=== PATIENT | male | born 1950 | race Caucasian/White ===

== ENCOUNTER 2016-10-18 12:10 | Emergency (ER) | payer MEDICARE, OTHER ==
[~2016-10-18] VITALS: Ht 165.1 cm; Wt 68.6 kg
[~2016-10-18 12:10] MED LIST: ASPI81TA3 PO; CLOP75TA3 PO; DXM4T PO; LIP40 PO; MS15TCR PO; MULT-1018 PO; NINT150C PO; OXYC5CAP4 PO; POLY17PO6 PO; PSYL798P2 PO; VIAG25T PO
[2016-10-18 12:25] VITALS: BP 121/64; PULSE 60; RESP 19; O2SAT 95
[2016-10-18 12:43] LABS: BASOPHILS % (AUTO) 0 % (0-3); EOSINOPHILS % (AUTO) 0 % (0-5); Mean Corpuscular Hemoglobin 31.1 pg (27.0-35.0); Mean Corpuscular Volume 93.6 fL (81-100); NEUTROPHILS % (AUTO) 92.8 % (40-74); Platelet Count 238 bil/L (150-400)
[2016-10-18] MEDS ORDERED: ATOR20TA PO (12:48)
[2016-10-18] MEDS ORDERED: BACL10TA PO (12:49)
--- NOTE | 2016-10-18 12:59 | DRSVH ---
PROCEDURE: X-RAY CHEST ONE VIEW, PORTABLE ([id number]) INDICATIONS: 66 year-old male with chest pain. TECHNIQUE: One view of the chest was acquired. COMPARISON: Outside Film, CR, XR CHEST 1VW (PORTABLE), 06/03/2016, 16:21. Outside Film, CR, XR CHEST 2VW, 02/22/2016, 9:46. FINDINGS: Surgical changes and devices: None. Lungs and pleura: No pleural effusions or pneumothorax. No acute airspace opacities. Lung volumes ar e decreased, with peripheral interstitial opacities again noted. Mediastinum: Mediastinal contours appear normal. Heart size is normal. Bones and chest wall: No suspicious bony lesions. Overlying soft tissues appear unremarkable. IMPRESSION: Findings consistent with background chronic interstitial lung disease, without superimpos ed acute pulmonary disease. Dictated by: Christoph Raza M.D. on 10/18/2016 at 11:56 Approved by: Christoph Raza M.D. on 10/18/2016 at 11:57
[2016-10-18 13:05] LABS: TROPONIN T < 0.010 ug/L (0.0-0.011)
[2016-10-18 13:12] LABS: Magnesium 2.5 mg/dL (1.6-2.6)
--- NOTE | 2016-10-18 13:30 | ED.REPORT ---
HPI-Chest Pain 40 and Over Date of Service Oct 18, 2016 ED Provider: Kalyn Valiente MD The patient is a 66 yo male with history significant for CAD s/p stents x4, idiopathic pulmonary fibrosis, and newly diagnosed lung cancer with mets to liver and bones. He presents to the ER for chest pain onset after the chemo session this morning. Patient reports chest pain across the anterior chest that does not feel like pressure, but radiates to his left neck and left arm. Per the patient, the pain felt different than the chest pain he had when he had the [place]. He reports similar symptoms after the chemo session yesterday as well, but it resolved with rest. This morning, he felt 7/10 chest pain after the chemo again, but by the time he arrived to the ED, his CP gradually improves and he is now pain free. He reports chronic SOB at rest. He denies any other associated symptoms, including diaphoresis, nausea, vomiting, headache, or palpitations. Patient has not used Nitro for the last 2 years. He is on Plavix and ASA 81mg at home. Of note, the patient was on the lung transplant list for many years until he was recently diagnosed with lung cancer 6 weeks ago. The patient just had 3 days of chemo so far. His oncologist is Dr. Siu. Nursing Notes Stated Complaint: CHEST PAIN Chief Complaint: Chest Pain Nursing Notes Reviewed: Yes Allergies: Coded Allergies: No Known Allergies (Verified , 10/10/16) Scheduled Aspirin Chew (Aspirin Chew) 81 Mg Tab.chew 81 MG PO DAILY Atorvastatin (Lipitor) 20 Mg Tablet 20 MG PO DAILY Baclofen (Baclofen) 10 Mg Tablet 5 MG PO TID Baclofen (Baclofen) 10 Mg Tablet 10 MG PO TID Clopidogrel Bisulfate (Plavix) 75 Mg Tablet 75 MG PO DAILY Dexamethasone (Dexamethasone) 4 Mg Tablet 4 MG PO BID Morphine Sulfate ER (MS Contin) 15 Mg Tablet.er 30 MG PO BID Multivitamin (Multi Vitamin Daily) 1 Each Tablet 1 EACH PO DAILY Nintedanib Esylate (Ofev) 150 Mg Capsule 150 MG PO Q12H WITH FOOD Polyethylene Glycol 3350 (Miralax) 17 Gm Powd.pack 17 GM PO DAILY Psyllium Husk (with Sugar) (Metamucil Powder) 538 Gm Powder 1 TBS PO DAILY Scheduled PRN oxyCODONE (oxyCODONE) 5 Mg Capsule 10 MG PO Q4H PRN PRN For Pain General Time Seen by MD: 12:20 Transferred From: Private physician office Chief Complaint Chest pain Hx Obtained From: Patient, Spouse Arrived By: Walk-in Sudden in Onset?: Yes Onset Occurred: Just prior to arrival Symptom Duration: 1 - 4 hours Location: : Chest left: Chest right Quality: Same as prior, Painful Radiation: : Neck: Shoulder left Severity: Current: No pain currently Severity: Maximum: Pain level 7 out of 10 Associated with: Reports: Shortness of Breath, Denies: Dizziness, Lightheaded, Nausea, Numbness/Tingling, Palpitations, Weakness, Wheezing Pertinent Negative: Exacerbated by nothing, Relieved by nothing Context Related History: Reports: Acute coronary syndrome, GERD, Myocardial infarction Recent Healthcare: Recent doctor visit Similar Sx Previous: Yes Risk Factors )( CAD Risk Stratification Hyperlipidemia Known CAD Risk factors reviewed )( PE Risk Stratification Malignancy Risk factors reviewed Past Medical History Past Medical History History of [place] Glaucoma Reports: Coronary artery disease, GERD Past Surgical History tash fundoplication Cardiac stents placement in 2003 and 2016 Smoking History Former Smoker (quit in 1985) Social History Alcohol Use: Denies alcohol use Drug Use: Denies drug use Other Social History: Good social support, Ambulatory Status Independent Review of Systems Complete sys rev & neg: except as marked. Physical Exam Initial Vital Signs Vital Signs (First) Date Time Temp Pulse Resp B/P Pulse Ox O2 Delivery O2 Flow Rate FiO2 10/18/16 12:25 36.6 60 19 121/64 95 Room Air Interpretation & Diagnostics Lab Results Interpretation Result Diagram: 10/18/16 1225 10/18/16 1225 Test 10/18/16 12:25 10/18/16 14:20 White Blood Count 13.7th/mm3 (3.8-10.1) Red Blood Count 4.69mil/mm3 (4.40-5.80) Hemoglobin 14.6g/dL (13.8-17.2) Hematocrit 43.9% (41.0-50.0) Mean Corpuscular Volume 93.6fL (81-100) Mean Corpuscular Hemoglobin 31.1pg (27.0-35.0) Mean Corpuscular Hemoglobin Concent 33.3% (32.0-37.0) Red Cell Distribution Width 13.6% (12.3-15.4) Platelet Count 238bil/L (150-400) Neutrophils (%) (Auto) 92.8% (40-74) Lymphocytes (%) (Auto) 4.0% (14-46) Monocytes (%) (Auto) 3.0% (4-12) Eosinophils (%) (Auto) 0% (0-5) Basophils (%) (Auto) 0% (0-3) D-Dimer 1.87mg/L FEU (<0.50) Sodium Level 140mEq/L (134-144) Potassium Level 5.1mEq/L (3.5-5.2) Chloride Level 102mEq/L (97-108) Carbon Dioxide Level 28mmol/L (18-29) Blood Urea Nitrogen 14mg/dL (8-27) Creatinine 0.60mg/dL (0.76-1.27) Estimat Glomerular Filtration Rate 142mL/min (>59) Glucose Level 145mg/dL (60-99) Calcium Level 9.3mg/dL (8.5-10.1) Magnesium Level 2.5mg/dL (1.6-2.6) Total Bilirubin 1.0mg/dL (0.0-1.2) Aspartate Amino Transf (AST/SGOT) 101U/L (0-50) Alanine Aminotransferase (ALT/SGPT) 168U/L (0-44) Alkaline Phosphatase 199U/L (25-160) Total Protein 6.2g/dL (6.4-8.4) Albumin 3.8g/dL (3.4-5.0) Hold Rayo Top Tube Received (Received) Troponin T < 0.010ug/L (0.0-0.011) Lab values outside NL range: no clinical significance. Lab Results Interpretation: Troponin negative x 2 Elevated WBC, but trends down compared to the last WBC D-dimer is elevated. ECG Interpretation ECG Interpretation: No changes compared to previous EKG. Interpreted by: ED physician Normal ECG Interpretation: Normal rate (60), No acute ischemic changes X-Ray Chest Interpretation Chest Xray Interpretation: IMPRESSION: Findings consistent with background chronic interstitial lung disease, without superimposed acute pulmonary disease. Dictated by: Christoph Raza M.D. on 10/18/2016 at 11:56 Approved by: Christoph Raza M.D. on 10/18/2016 at 11:57 View: Portable Interpretation / Wet Read by: Interpret - Radiologist Reviewed Previous Films: No change Re-Eval/Medical Decision Med Decision/Clinical Course 66 yo male with history significant for CAD s/p stents x4, idiopathic pulmonary fibrosis, and newly diagnosed lung cancer with mets to liver and bones presents to the ER for chest pain onset after the chemo session this morning. The chest pain is across his anterior chest with radiation to the left neck and shoulder. However, patient states that it feels different than the [place] chest pain he had. However, by the time he arrived to the ER, his chest pain has resolved. Patient had similar symptoms after chemo yesterday as well. In light of his significant CAD and recently diagnosed lung cancer, I was concerned of ACS and/or pulmonary embolism. I did not realize that the patient already had a CT chest/abd/pelvis done yesterday 10/17, which did not show any evidence of PE. Therefore, although his D-dimer is elevated, there is no other indication to repeat the CT chest. Patient also denies any worsening SOB or calf tenderness. His cardiac workups are negative as below. Labs: Troponin negative x 2 Elevated WBC, but trends down compared to the last WBC D-dimer is elevated. CXR: Findings consistent with background chronic interstitial lung disease, without superimposed acute pulmonary disease. EKG: no acute changes. Rate of 60. Given all these findings, it is likely that his chest pain is due to side effects of the chemotherapy, interstitial lung disease, cancer pain, or anxiety. Patient admits that he has been under stress given the new diagnosed cancer and the fact that he has been on the lung transplant list for many years. All the labs and imaging report were discussed with the patient and his . All questions were answered and patient was discharged in stable condition. Source of Hx: Old records, Family Time of Eval: 13:20 Patient Status: Condition resolved Re-Evaluation/Progress Note: Patient denies any chest pain. Labs and CXR results discussed. Trop negative x 1. Although his D-dimer is slightly elevated, the patient just had a CT chest yesterday. He will follow up with his PCP and oncologist next week. Time of Eval: 15:10 Patient Status: Condition resolved Re-Evaluation/Progress Note: CT chest that was done on 10/17 discussed with the patient. I encouraged the patient to talk to oncology about the details of the CT, but he does not need to repeat it today in spite of the elevated D-dimer. Patient verbalized understanding. Second Trop negative. Patient agreed with discharge plan. Counseled Regarding: Diagnosis, Lab results, Need for follow-up, When/why to return to ED Discharge & Departure Shift Change Sign-Out Response to Therapy: Improved Primary Impression: Non-cardiac chest pain Disposition: Home Discharge Condition All VS Reviewed: Yes Condition: Stable Patient Instructions: Chest Pain (ED) Additional Instructions: In light of your past medical history, your symptoms were concerning for a heart attack. However, both the EKG and the labs are negative for any acute changes. It is likely that the chest pain you had was due to either the chemotherapy or your current lung disease. Please discuss about these symptoms with Dr. Siu. We were also concerned of possible blood clot in your lung, but you just had a chest CT done yesterday 10/17, which showed increasing size of the lung masses without any new findings. Therefore, we did not pursue additional imaging today. However, if you develop worsening chest pain, shortness of breath, headache, dizziness, nausea, or vomiting, please return to the ER. Take your medications as directed and follow up with your primary care doctor in a few weeks. Referrals: Fabian Solis MD (PCP) CARDIOLOGY,ROSALIE SÁNCHEZ (Family) Attending Statement Patient seen and examined. 66-year-old gentleman with metastatic lung cancer is been experiencing chest pain at the end of his chemotherapy. Moderate pain yesterday. Pain-free by the time he arrived in the emergency department today. Labs are similar to prior. Initial troponin and repeat at 2 hours is also unremarkable. Suspect noncardiac etiology for his chest pain likely related to his chemotherapy copies to: Fabian Solis MD; Venkatesh Garzon MD, Ngochanh H DO Oct 18, 2016 13:30 Kalyn Valiente MD Oct 18, 2016 15:12
[2016-10-18 15:29] VITALS: BP 137/70; PULSE 54; RESP 14; O2SAT 93
[2016-10-23] MEDS ORDERED: ASPI-973 PO (15:53)
[2016-10-28] MEDS ORDERED: ATOR40TA69 PO (10:58)
[2016-10-28] MEDS ORDERED: PROC10TA PO (10:58)
[2016-10-28] MEDS ORDERED: DEX1 PO (10:58)
[2016-10-28] MEDS ORDERED: [UNRECOGNIZED DRUG - OTHER] PO (10:58)
[2016-10-28] MEDS ORDERED: RELIEF PO (10:58)
[2016-11-01] MEDS ORDERED: THC PO (14:48)
[2016-11-01] MEDS ORDERED: CBD PO (14:48)
== END 2016-10-18 15:23 | disposition home or self-care (01) ==
LOC: SED 12:10
DX: R07.89 Other chest pain (principal); R06.02 Shortness of breath; I25.10 Atherosclerotic heart disease of native coronary artery without angina pectoris; I25.2 Old myocardial infarction; K21.9 Gastro-esophageal reflux disease without esophagitis; H40.9 Unspecified glaucoma; C78.7 Secondary malignant neoplasm of liver and intrahepatic bile duct; C79.51 Secondary malignant neoplasm of bone; C34.90 Malignant neoplasm of unspecified part of unspecified bronchus or lung; Z95.5 Presence of coronary angioplasty implant and graft; Z79.82 Long term (current) use of aspirin; Z87.891 Personal history of nicotine dependence

== ENCOUNTER 2016-10-24 13:06 | Day surgery (SDC) | payer MEDICARE, OTHER ==
[~2016-10-24] VITALS: Ht 165.1 cm; Wt 65.4 kg
[~2016-10-24 13:06] MED LIST changes: +ASPI-973 PO; -ASPI81TA3 PO; +ATOR20TA PO; +BACL10TA PO; -CLOP75TA3 PO; +CeFAZolin 2 Gm/50 mL D5W IV Premix IV ONE; +Dexamethasone 4 mg/mL Inj IVPUSH PRN; +EPHEDrine Sulfate 50 mg/mL Inj IVPUSH PRN; +HYDROmorphone 1 mg/mL Inj IVPUSH PRN; -LIP40 PO; +Labetalol 5 mg/mL 4 mL Inj IV PRN; +Lactated Ringer's 1,000 ML IV SCH; +Lactated Ringer's 500 ML IV PRN; +MetoCLOpramide 5 mg/mL 2 mL Inj IVPUSH PRN; -NINT150C PO; +Ondansetron 2 mg/mL 2 mL Inj IVPUSH PRN; +Phenylephrine 10,000 mCg/mL Inj IVPUSH PRN; -VIAG25T PO; +fentaNYL-PF 50 mCg/mL 2 mL Inj IVPUSH PRN; +hydrALAZINE 20 mg/mL Inj IVPUSH PRN
[2016-10-24] MEDS ORDERED: Propofol 10 mg/mL 20 mL Inj ONE (13:07)
[2016-10-24] MEDS ORDERED: Ketamine 10 mg/mL 20 mL Inj ONE (13:07)
[2016-10-24] MEDS ORDERED: CeFAZolin 2 Gm/50 mL D5W Duplex Bag IV ONE (13:14)
[2016-10-24] MEDS ORDERED: Lactated Ringer's 1,000 ML IV ONE (13:24)
[2016-10-24 13:26] VITALS: BP 150/78; PULSE 60; RESP 16; O2SAT 96
--- NOTE | 2016-10-24 14:13 | PCM.HPANE ---
Patient Data Date of Service: Oct 24, 2016 Surgeon Admitting Provider: Attending Provider:Pop Martinez MD Primary Care Physician:Fabian Solis MD Other Provider:Jose M Magdaleno Anesthesia Reason for Visit Lung Cancer Ht/WT & BMI Height (Feet): 5 Height (Inches): 5.00 Weight (Kilograms): 65.4 Body Mass Index 24.00 Allergies Coded Allergies: No Known Allergies (Verified , 10/10/16) Past Anesthesia History Anesthesia History: Denies:: Abnormal Airway, Anesthesia Reactions, Difficult Intubation, Fam Anesthesia Reaction, Fam Malignant Hypertherm, Malignant Hyperthermia Diabetes History Hx Diabetes?: No MRSA MRSA: No Medications Blood Thinner: Aspirin, Plavix Reported Medications Aspirin 81 Mg Wfrmlx74 Mg PO DAILY Ref 0 10/23/16 Baclofen 10 Mg Coyggf63 Mg PO TID Ref 0 10/18/16 Baclofen 10 Mg Tablet5 Mg PO TID Ref 0 10/18/16 Atorvastatin (Lipitor)20 Mg Mkasjb51 Mg PO DAILY Ref 0 10/18/16 Psyllium Husk (with Sugar) (Metamucil Powder)538 Gm Powder1 Tbs PO DAILY 10/16/16 Polyethylene Glycol 3350 (Miralax)17 Gm Powd.pack17 Gm PO DAILY 10/16/16 Multivitamin (Multi Vitamin Daily)1 Each Tablet1 Each PO DAILY Ref 0 10/16/16 Dexamethasone 4 Mg Tablet4 Mg PO BID Ref 0 10/16/16 oxyCODONE 5 Mg Ewvdmsp39 Mg PO Q4H PRN For Pain Ref 0 10/16/16 Morphine Sulfate ER (MS Contin)15 Mg Tablet.er30 Mg PO BID Ref 0 10/16/16 Discontinued Reported Medications Clopidogrel Bisulfate (Plavix)75 Mg Wwbiwu44 Mg PO DAILY 30 Days Ref 0 12/21/14 Nintedanib Esylate (Ofev)150 Mg Iardnvy666 Mg PO Q12H WITH FOOD 12/21/14 Aspirin Chew 81 Mg Tab.chew81 Mg PO DAILY #1 BOTTLE Ref 0 10/05/13 Sildenafil Citrate (Viagra)25 Mg Enupgy38 Mg PO UD PRN ED Ref 0 10/10/16 Atorvastatin (Lipitor)40 Mg Hryodm27 Mg PO DAILY Ref 0 12/21/14 History History of ENT Problems?: No HEENT History: Denies:: Abnormal Airway Cataracts Difficult Intubation Dysphagia Hearing Problem Sinus Problem Denture Type: None Teeth Condition: Within Normal Limits Hx of Heart Problems?: Yes Cardiovascular History: Positive for:: Cardiac Surgery (S/P HEART CATHS X2 W/ STENTING (11/2003, 12/2014)) Chest Pain (UNSTABLE ANGINA) Hypertension Irregular Heartbeat Denies:: AICD Atrial Fibrillation Congestive Heart Failure Edema Heart Murmur (ECHO 03/2005 EF 60-70% MILD PULM. HTN) Pacemaker Thrombophlebitis Valvular Heart Disease Other Cardiac History: Bare metal stents in june. Cleared by cardiology. No recent chest pain. Long discussion about dualantiplatelet therapy. Stopped Plavix 7 days ago, took ASA this am. Hx of Respiratory Problem?: Yes Respiratory History: Positive for:: COPD (06/2011-PFT'S/PULM. CONSULT IDIOPATHIC PULM. FIBROSIS/RESTRICTIVE DIS.) Cough Dyspnea ([place]) Oxygen Administration (@ NIGHT W/ CPAP & W/ ANY ACTIVITY) Use of C-PAP Machine (NILAM+ W/ CPAP) Denies:: Asthma Chest Surgery (S/P LUNG BX LUNG CA/IV ACCESS=CURRENT PROBLEM) Emphysema Hemoptysis Pneumonia Tuberculosis Hx Neurologic Problems?: Yes Neurological History: Denies:: Alzheimer's Disease CVA Dementia Dizziness Headaches (REMOTE HX ) Parkinson's Disease Seizures Hx of GI Problems?: Yes Hx of Problems?: No Male Hx: Denies:: Prostate Problems Scrotal Mass Testicular Surgery Skin History: Denies:: History Skin Disorders? Pressure Ulcers Hx Musculoskeletal Problems?: Yes Musculoskeletal History: Positive for:: Musculoskeletal Trauma (S/P LT ELBOW PINNING) Denies:: Back Injury Joint Replacement Hx of Psycho/Social Problems?: No Psycho Social History: Denies:: Anxiety Hx Depression Hx Surgeries?: Yes (HEART CATHS/STENTING X2,ASHLEY FUNDOPLICATION,LT ELBOW PINNING,LIVER BX,MONICA) Hx Any Other Health Problems?: Yes Other History: Positive for:: Cancer (LUNG) Hospitalization Denies:: Endocrine Disease Thyroid Disease History Blood Transfusions: Denies:: Blood Transfuse Reaction Blood Transfusions Hx Diabetes: No Hx Alcohol Use: YesHx Substance Use: No Smoking Status: Former Smoker Have You Smoked inLast 12 mo: No Stop/Bang S-Snoring: Do You Snore Loudly: No T-Tired: feel tired, fatigued: No O-Obsered: Observed not breath: No P-Blood Pressure: treated: Yes B- Body Mass Index > 35 kg/m2: No A- Age over 50: Yes N- Neck Large Circumference: No G- Gender Male: Yes NILAM Risk Assessment: Low Risk, <3 Yes Risk Assessment Category Category 1A: Patient has history of documented sleep apnea, and HAS NOT received any narcotic, sedative or anesthesia administration during this stay. Category 1B: Patient has history of documented sleep apnea, and HAS received any narcotic , sedative or anesthesia administration during this stay Category 2: Patient has SUSPECTED Obstructive Sleep Apnea, and HAS received any narcotic , sedative or anesthesia administration during this stay. Category 3: Patient has SUSPECTED Obstructive Sleep Apnea and HAS NOT received narcotic, sedative or anesthesia administration during this stay. Category 4: Outpatient in Procedural Areas with known sleep apnea or who screen positive for High Risk via the STOP/BANG questionnaire. Exam Exam Vital Signs Vital Signs Date Time Temp Pulse Resp B/P Pulse Ox O2 Delivery O2 Flow Rate FiO2 10/24/16 13:26 36.0 60 16 150/78 96 Room Air General Appearance: Alert, Oriented X3, Cooperative, No Acute Distress HEENT/AIRWAY: MP 2 Lungs: Clear to Auscultation, Normal Air Movement Heart: Exam Unremarkable, Regular Rate/Rhythm, No Murmurs/Rubs/Gallops Meds/Labs/Diagnostics Admission Meds Current Medications Lactated Ringer's (Lr) 1,000 ml @ ud STK-MED ONCE IV Last administered on 10/24t 13:24; Start 10/24/16 at 13:24; Stop 10/24/16 at 13:25; Status DC Plan Impression Patient chart reviewed, patient interviewed and anesthestic plan with risks, benefits, and alternatives discussed, and informed consent obtained. NPO per Anesth. Guidelines: Yes ASA Physical Status: ASA3 Severe Disease Anesthetic Plan: MAC Bene/Risks/Altern/Consents: Yes HP Complete Prior to Induction: Yes Miguel Roland MD Oct 24, 2016 14:13
[2016-10-24] MEDS ORDERED: Bupivacaine-MPF 0.5% W/EPI 30 mL Inj INFILTRATE ONE (14:26)
[2016-10-24] MEDS ORDERED: HepLOK Flush 100 unit/mL 5 mL Inj IVFLUSH ONE (14:27)
[2016-10-24 15:01] VITALS: BP 108/64; PULSE 52; RESP 15; O2SAT 96
--- NOTE | 2016-10-24 15:18 | PCM.ANEP1 ---
Post Anesthesia PACU Phase 1 Assessment Vital Signs Vital Signs Date Time Temp Pulse Resp B/P Pulse Ox O2 Delivery O2 Flow Rate FiO2 10/24/16 15:01 36.6 52 15 108/64 96 Simple Mask 7 10/24/16 13:26 36.0 60 16 150/78 96 Room Air Anesthetic Administered: MAC Level of Alertness: Sleepy, easy to arouse Pain: No Nausea or Vomiting: No CV Function & Hydration Stable: Yes Airway Device: Oxygen Delivery: Room Air Lungs: Clear to Auscultation, Normal Air Movement PACU Phase 2 Assessment Complications: No Follow up Care: N/A Patient Instructions Provided: N/A Miguel Roland MD Oct 24, 2016 15:18
--- NOTE | 2016-10-24 15:27 | OP ---
[address] [address] OPERATIVE REPORT PATIENT: NORMAN HANSEN : 1950 MR#: [id number] ADMIT: 10/24/2016 JOB ID: [id number] DATE OF SURGERY: 10/24/2016 ANESTHESIA: MAC with local. PREOPERATIVE DIAGNOSIS(ES): Lung cancer. POSTOPERATIVE DIAGNOSIS(ES): Lung cancer. OPERATIVE PROCEDURE: Insertion of left subclavian vein Port-A-Cath using fluoroscopy with interpretation for guidance. SURGEON: Dr. Pop Martinez. ASSISTANTS: Alan Toth PA-C COMPLICATIONS: None. ESTIMATED BLOOD LOSS: Less than 5 mL. CONDITION: Satisfactory. SPECIMEN: None. FINDINGS: Port was placed without complications to the left subclavian vein. INDICATIONS/SIGNIFICANT HISTORY: The patient is a 66-year-old man with metastatic lung cancer scheduled to begin chemotherapy in the near future. OPERATIVE TECHNIQUE: The patient was taken to the operating room and placed in supine position. Light sedation was administered and perioperative antibiotics were given. The chest and neck were prepped and draped in a standard surgical fashion and a procedural pause performed. Initially I had a little difficulty accessing the left subclavian vein given that the patient's somewhat emaciated state. Eventually, this was accessed and the physician assistant media buyer confirmed with fluoroscopy which demonstrated the wire going through the right atrium down into the inferior vena cava. Local anesthetic was injected and a subcutaneous pocket was created in the left anterior chest. The port was secured in place using three 2-0 Prolene sutures. The catheter was tunneled up to the wire exit point and then inserted into the vein under fluoroscopic visualization. Final position was confirmed with fluoroscopy. The port aspirated and flushed nicely. This was locked with heparin. The skin was closed using 3-0 Vicryl deep dermal followed by a running 4-0 Monocryl. Dermabond was applied. The entire procedure was well tolerated without complication.
--- NOTE | 2016-10-24 15:31 | DRSVH ---
PROCEDURE: X-RAY CHEST ONE VIEW, PORTABLE ([id number]) INDICATIONS: POST OP PORT PLACEMENT TECHNIQUE: One view of the chest was acquired. COMPARISON: Outside Film, CR, XR CHEST 2VW, 02/22/2016, 9:46. Outside Film, CR, XR CHEST 1VW (FREDDIE BLE), 06/03/2016, 16:21. [facility], CT, CT CHEST ABD PELVIS W CON, 10/17/2016, 13:16. [facility], CR, XR CHEST 1VW (PORTABLE), 10/18/2016, 12:24. FINDINGS: Surgical changes and devices: Left chest wall Port-A-Cath has been placed with tip projecting to the distal SVC. Lungs and pleura: No pleural effusions or pneumothorax. Chronic interstitial prominence stable keila red to prior examinations. Mediastinum: Mediastinal contours appear normal. Heart size is normal. Bones and chest wall: No suspicious bony lesions. Overlying soft tissues appear unremarkable. IMPRESSION: No acute cardiopulmonary disease process. Status post placement of left sided Port-A-Cat h. Dictated by: Letty Huddleston MD, PhD on 10/24/2016 at 15:28 Approved by: Letty Huddleston MD, PhD on 10/24/2016 at 15:29
[2016-10-24 15:50] VITALS: BP 110/62; PULSE 60; RESP 16; O2SAT 97
[2016-10-28] MEDS ORDERED: ATOR40TA69 PO (10:58)
[2016-10-28] MEDS ORDERED: RELIEF PO (10:58)
[2016-10-28] MEDS ORDERED: DEX1 PO (10:58)
[2016-10-28] MEDS ORDERED: [UNRECOGNIZED DRUG - OTHER] PO (10:58)
[2016-10-28] MEDS ORDERED: PROC10TA PO (10:58)
== END 2016-10-24 23:59 | disposition home or self-care (01) ==
LOC: SAS 13:06
PROVIDERS: ATTEND General Practice
DX: C34.90 Malignant neoplasm of unspecified part of unspecified bronchus or lung (principal); I25.10 Atherosclerotic heart disease of native coronary artery without angina pectoris; I45.10 Unspecified right bundle-branch block; E78.5 Hyperlipidemia, unspecified; K21.9 Gastro-esophageal reflux disease without esophagitis; J84.112 Idiopathic pulmonary fibrosis; I25.2 Old myocardial infarction; Z95.5 Presence of coronary angioplasty implant and graft; Z79.82 Long term (current) use of aspirin; Z79.02 Long term (current) use of antithrombotics/antiplatelets; Z87.891 Personal history of nicotine dependence; G47.33 Obstructive sleep apnea (adult) (pediatric)
CPT/HCPCS: 36561; 71010; 77001; C1788; C1894; J0690; J1642; J7120

== ENCOUNTER 2016-11-30 16:15 | Emergency (ER) | payer MEDICARE, OTHER ==
[~2016-11-30] VITALS: Ht 165.1 cm; Wt 63.6 kg
[~2016-11-30 16:15] MED LIST changes: -ATOR20TA PO; +ATOR40TA69 PO; +CBD PO; -CeFAZolin 2 Gm/50 mL D5W IV Premix IV ONE; -DXM4T PO; -Dexamethasone 4 mg/mL Inj IVPUSH PRN; -EPHEDrine Sulfate 50 mg/mL Inj IVPUSH PRN; -HYDROmorphone 1 mg/mL Inj IVPUSH PRN; -Labetalol 5 mg/mL 4 mL Inj IV PRN; -Lactated Ringer's 1,000 ML IV SCH; -Lactated Ringer's 500 ML IV PRN; -MetoCLOpramide 5 mg/mL 2 mL Inj IVPUSH PRN; -Ondansetron 2 mg/mL 2 mL Inj IVPUSH PRN; +PROC10TA PO; -Phenylephrine 10,000 mCg/mL Inj IVPUSH PRN; +THC PO; -fentaNYL-PF 50 mCg/mL 2 mL Inj IVPUSH PRN; -hydrALAZINE 20 mg/mL Inj IVPUSH PRN
[2016-11-30 16:18] VITALS: BP 122/72; PULSE 70; RESP 20; O2SAT 97
[2016-11-30 17:49] LABS: Mean Corpuscular Hemoglobin 31.7 pg (27.0-35.0); Mean Corpuscular Volume 94.8 fL (81-100); Platelet Count 251 bil/L (150-400)
[2016-11-30 18:14] LABS: BASOPHILS % (AUTO) 0 % (0-3); EOSINOPHILS % (AUTO) 0 % (0-5); MONOCYTES % (AUTO) 2 % (4-12); NEUTROPHILS % (AUTO) 88 % (40-74)
--- NOTE | 2016-11-30 18:14 | DRSVH ---
PROCEDURE: CT BRAIN WITHOUT CONTRAST ([id number]) INDICATIONS: dizziness, headache TECHNIQUE: Noncontrast 4.5 mm thick angled axial sections acquired from the foramen magnum to the vertex, with c oronal reformats. COMPARISON: None. FINDINGS: Image quality: Excellent. CSF spaces: Basal cisterns are patent. No extra-axial fluid collections. The ventricles are symmet timo in size and shape. Brain: No intracranial bleeds or masses. There is cerebral volume loss for age, with resultant vent ricular and sulcal prominence. There are periventricular and deep white matter chronic small vessel ischemic changes. There is intracranial internal carotid artery atherosclerosis. Skull and face: Calvarium and visualized facial bones appear intact, without suspicious lesions. Sinuses: Visualized sinuses and mastoids are clear. IMPRESSION: No acute intracranial process Dictated by: Cl John M.D. on 11/30/2016 at 18:12 Approved by: Cl John M.D. on 11/30/2016 at 18:13
[2016-11-30 18:32] LABS: Magnesium 2.1 mg/dL (1.6-2.6)
[2016-11-30 19:27] VITALS: BP 102/56; PULSE 77; O2SAT 97
[2016-11-30] MEDS ORDERED: LORA1TAB PO (19:39)
[2016-11-30] MEDS ORDERED: CLOP75TA3 PO (19:39)
[2016-11-30] MEDS ORDERED: NAPR220C11 PO (19:39)
[2016-11-30] MEDS ORDERED: Morphine ER 30 mg (MS Contin) Tablet PO ONE (19:40)
--- NOTE | 2016-11-30 19:44 | ED.REPORT ---
HPI-General Illness Date of Service Nov 30, 2016 ED Provider: Reji Thomas DO A 66 year old male with a history of metastatic large cell carcinoma on chemotherapy, interstitial lung fibrosis, coronary artery disease and cardiac stents is brought to the ED by family due to dizziness. The pt was sitting down at 13:00 today when he suddenly began experiencing spinning dizziness. The dizziness continued to worsen and was accompanied by nausea, chills, weakness and diaphoresis. The pt was instructed to take meclizine, but his condition continued to worsen. The pt had a chemotherapy appointment within the last few days but was not experiencing any symptoms at that time. He denies lightheadedness, ringing in his ears or any other abnormal symptoms. The pt was unable to sleep last night despite taking 2 mg of Lorazepam. Pt notes his symptoms have started to improve as he has waited here and the meclizine has kicked in. Nursing Notes Stated Complaint: CANCER PATIENT W VIRTIGO AND NAUSEA/VOMITING Chief Complaint: Male Abdominal Pain Nursing Notes Reviewed: Yes Allergies: Coded Allergies: No Known Allergies (Verified , 11/30/16) Scheduled Aspirin (Aspirin) 81 Mg Tablet 81 MG PO DAILY Atorvastatin Calcium (Atorvastatin Calcium) 40 Mg Tablet 40 MG PO DAILY Clopidogrel Bisulfate (Plavix) 75 Mg Tablet 75 MG PO DAILY Morphine Sulfate ER (MS Contin) 15 Mg Tablet.er 30 MG PO BID Multivitamin (Multi Vitamin Daily) 1 Each Tablet 1 EACH PO DAILY Naproxen Sodium (Aleve) 220 Mg Capsule 440 MG PO q8hr Polyethylene Glycol 3350 (Miralax) 17 Gm Powd.pack 17 GM PO DAILY Psyllium Husk (with Sugar) (Metamucil Powder) 538 Gm Powder 1 TBS PO DAILY Scheduled PRN Baclofen (Baclofen) 10 Mg Tablet 15 MG PO TID PRN PRN For Pain Lorazepam (Lorazepam) 1 Mg Tablet 1 MG PO HS PRN PRN For Insomnia Ondansetron ODT (Zofran ODT) 4 Mg Tablet 1-2 TAB PO Q4H PRN PRN For Nausea Prochlorperazine Maleate (Prochlorperazine) 10 Mg Tablet 10 MG PO Q4H PRN PRN For Nausea/Vomiting Zolpidem (Ambien) 10 Mg Tablet 10 MG PO HS PRN PRN For Insomnia General Time Seen by MD: 19:40 Chief Complaint Dizziness Hx Obtained From: Patient, Other family... Arrived By: Walk-in Sudden in Onset?: Yes Onset Occurred: 5 - 8 hours ago Symptom Duration: Since onset Recent Healthcare: Recent doctor visit Similar Sx Previous: No Past Medical History Past Medical History History of [place] Glaucoma Metastatic large cell carcinoma, lung primary Interstitial lung fibrosis Reports: Coronary artery disease, GERD Past Surgical History tash fundoplication Cardiac stents placement in 2004 and 2017 Smoking History Former Smoker Social History Alcohol Use: Denies alcohol use Drug Use: Denies drug use Other Social History: Good social support, Ambulatory Status Independent Review of Systems Full Review of Systems Constitutional: Reports: Chills Ears / Nose / Throat: Denies: Ear ringing bilateral Respiratory: Denies: Non-productive cough, Shortness of breath GI: Reports: Nausea Skin: Reports Diaphoresis, Denies Rash Neurologic: Reports: Dizziness, Denies: Lightheaded Complete sys rev & neg: except as marked. Physical Exam Vital Signs Vital Signs Date Time Temp Pulse Resp B/P Pulse Ox O2 Delivery O2 Flow Rate FiO2 11/30/16 22:39 36.8 81 18 111/61 97 Room Air 11/30/16 19:27 36.8 77 102/56 97 Room Air 11/30/16 16:18 36.8 70 20 122/72 97 Room Air Initial VS: Reviewed General/Constitutional: Awake, Alert Head / Eyes: Atraumatic, Normocephalic, PERRL, EOMI nystagmus with leftward gaze ENT: Atraumatic, Airway patent, Mucous membranes moist Neck: Atraumatic, Supple, Full range of motion Respiratory / Chest: Atraumatic, No respiratory distress inspiratory rales, right lung base Cardiovascular: Heart rate NL, Regular rhythm 3/6 holosystolic murmur, left upper sternal border Abdomen: Atraumatic, Soft, Non-tender Back: Atraumatic, Full range of motion Upper Extremities Upper Extremity / MS: Atraumatic, Full range of motion Lower Extremity / Pelvis / MS: Atraumatic, Full range of motion Skin: Atraumatic, Color NL, No rash, Warm, Dry Neurologic: Oriented X3, Speech NL, No motor deficits, No sensory deficits Psychiatric: Affect NL, Mood NL Interpretation & Diagnostics Lab Results Interpretation Result Diagram: 11/30/16 1735 11/30/16 1735 Test 11/30/16 15:50 11/30/16 17:35 11/30/16 20:10 Hold Rayo Top Tube Received (Received) White Blood Count 19.4th/mm3 (3.8-10.1) Red Blood Count 3.85mil/mm3 (4.40-5.80) Hemoglobin 12.2g/dL (13.8-17.2) Hematocrit 36.5% (41.0-50.0) Mean Corpuscular Volume 94.8fL (81-100) Mean Corpuscular Hemoglobin 31.7pg (27.0-35.0) Mean Corpuscular Hemoglobin Concent 33.4% (32.0-37.0) Red Cell Distribution Width 16.2% (12.3-15.4) Platelet Count 251bil/L (150-400) Neutrophils (%) (Auto) 88% (40-74) Lymphocytes (%) (Auto) 4% (14-46) Monocytes (%) (Auto) 2% (4-12) Eosinophils (%) (Auto) 0% (0-5) Basophils (%) (Auto) 0% (0-3) Band Neutrophils % 6% (1-5) Sodium Level 137mEq/L (134-144) Potassium Level 4.4mEq/L (3.5-5.2) Chloride Level 101mEq/L (97-108) Carbon Dioxide Level 24mmol/L (18-29) Blood Urea Nitrogen 9mg/dL (8-27) Creatinine 0.40mg/dL (0.76-1.27) Estimat Glomerular Filtration Rate 227mL/min (>59) Glucose Level 108mg/dL (60-99) Calcium Level 9.2mg/dL (8.5-10.1) Magnesium Level 2.1mg/dL (1.6-2.6) Total Bilirubin 0.8mg/dL (0.0-1.2) Aspartate Amino Transf (AST/SGOT) 209U/L (0-50) Alanine Aminotransferase (ALT/SGPT) 97U/L (0-44) Alkaline Phosphatase 376U/L (25-160) Total Protein 6.5g/dL (6.4-8.4) Albumin 3.5g/dL (3.4-5.0) Lipase 27U/L (13-60) Hold Urine Received (Received) CT Head Interpretation IMPRESSION: No acute intracranial process Dictated by: Cl John M.D. on 11/30/2016 at 18:12 Approved by: Cl John M.D. on 11/30/2016 at 18:13 Interpretation / Wet Read by: Interpret - Radiologist Re-Eval/Medical Decision Med Decision/Clinical Course Discussed pts symptoms which appear to be classic labrinthitis by history with oncology. Not likely due to new chemo taxotere. Leukocytosis likely related to recent G-CSF dose. No SIRS criteria today otherwise. Symptoms somewhat improved with meclizine and zofran. Pt has promethazine at home which he can take as well. Discussed possible admission vs home treatment and f/u. Pt and elect for home treatment. Source of Hx: Old records Time of Eval: 22:23 Patient Status: Condition improved Re-Evaluation/Progress Note: Pt rechecked, whose condition has improved. The diagnosis and plan for discharge are discussed. The pt understands and agrees with the plan. All questions are addressed at this time. Consultation : Referral / Consult Name: Demar Aj MD Call Returned at: 21:32 Supervisor Record Press: Agrees with eval, Agrees with plan Note: Consulted with Dr. Aj, oncology, regarding pt's case. Dr. Aj agrees with the evaluation and plan. Counseled Regarding: Diagnosis, Lab results, Need for follow-up, When/why to return to ED Discharge & Departure Primary Impression: Labyrinthitis Laterality: unspecified laterality Qualified Code: H83.09 - Labyrinthitis, unspecified ear Additional Impressions: Insomnia Insomnia type: primary Qualified Code: F51.01 - Primary insomnia Leukocytosis Leukocytosis type: unspecified Qualified Code: D72.829 - Elevated white blood cell count, unspecified Nausea Disposition: Home Discharge Condition All VS Reviewed: Yes Condition: Stable Patient Instructions: Labyrinthitis (ED) Additional Instructions: Thank you for allowing us to be a part of your care. Your symptoms are likely caused by the inner ear. Take one Zofran every 8 hours as needed for nausea. Take Meclizine as directed for vertigo. Take Ambien as directed to help you sleep. Discuss this medication with your primary care physician to obtain a longer prescription. Call your primary care physician to arrange a follow up appointment next week. Return to the emergency department if you develop any new or worsening symptoms. Referrals: Fabian Solis MD (PCP) Venkatesh Garzon MD Scribe Attestation Portions of this note were transcribed by Nima Olmos. I, Dr. Thomas personally performed the history, physical exam and medical decision-making; I reviewed and confirmed the accuracy of the information in the transcribed note. copies to: Fabian Solis MD; Venkatesh Garzon MD, Gary R DO Nov 30, 2016 19:44 NIMA OLMOS Nov 30, 2016 20:11
[2016-11-30] MEDS ORDERED: Ondansetron 2 mg/mL 2 mL Inj IVPUSH ONE (21:05)
[2016-11-30] MEDS ORDERED: Ondansetron 8 mg ODT Tablet PO ONE (21:25)
[2016-11-30] MEDS ORDERED: ZLP10T PO (22:25)
[2016-11-30] MEDS ORDERED: _Ondansetron ODT 4 mg Tablet PO PRN (22:25)
[2016-11-30] MEDS ORDERED: ONDA4TAB9 PO (22:25)
[2016-11-30 22:39] VITALS: BP 111/61; PULSE 81; RESP 18; O2SAT 97
== END 2016-11-30 22:41 | disposition home or self-care (01) ==
LOC: SED 16:15
DX: H83.09 Labyrinthitis, unspecified ear (principal); F51.01 Primary insomnia; D72.829 Elevated white blood cell count, unspecified; R11.0 Nausea; I25.10 Atherosclerotic heart disease of native coronary artery without angina pectoris; I25.2 Old myocardial infarction; C34.90 Malignant neoplasm of unspecified part of unspecified bronchus or lung; J84.10 Pulmonary fibrosis, unspecified; Z95.5 Presence of coronary angioplasty implant and graft; Z87.891 Personal history of nicotine dependence; Z79.82 Long term (current) use of aspirin